=== PATIENT | female | born 1940 | race Caucasian/White ===

== ENCOUNTER → 2017-12-18 | Outpatient (CLI) | payer MEDICARE, OTHER ==
[~2017-12-18] MED LIST: A RED; ACET325 PO; ASCO500 PO; Align4 MG PO; Biotin 800 Mcg1 EACH PO; CENTRUM SILVER1 EACH PO; CLOB.05TC; CLOB.05TO TOP; ELIQUIS5 MG PO; FERR325 PO; GAVILAX17 GM PO; LEVSOD100 PO; LEVSOD88 PO; METO25ER PO; METO50 PO; OMEP40CA12 PO; ONDA4 PO; OXECTA5 MG PO; PIRO20 PO; POLY500 PO; PROBIOTIC1 EAC1 PO; Prilosec Otc20 MG PO; Super B Comple150 MG PO; TOCO400 PO; Toprol Xl25 MG PO; VALA500 PO; VANCOMYCIN HCL PO; Valtrex500 MG PO; Voltaren100 GM TOP
== END | disposition home or self-care (01) ==
LOC: LAB 15:56 → LAB SHORT 15:56
PROVIDERS: Obstetrics & Gynecology
DX: R87.622 Low grade squamous intraepithelial lesion on cytologic smear of vagina (LGSIL) (principal); R87.811 Vaginal high risk human papillomavirus (HPV) DNA test positive
CPT/HCPCS: 87624; 88142

== ENCOUNTER 2019-06-12 18:45 | Inpatient (IN) | payer MEDICARE, OTHER ==
[~2019-06-12] VITALS: Ht 157.5 cm; Wt 48.6 kg
[~2019-06-12 18:45] MED LIST changes: +LEVSOD75 PO; -METO50 PO
[2019-06-12 19:13] LABS: BASOPHILS ABSOLUTE AUTO 0.03 K/mm3 (0.00-0.23); BASOPHILS PERCENT AUTO 0 % (0-2); EOSINOPHILS ABSOLUTE AUTO 0.07 K/mm3 (0.00-0.68); EOSINOPHILS PERCENT AUTO 1 % (0-6); Hematocrit 42.1 % (33.0-51.0); IMMATURE GRAN ABSOLUTE AUTO 0.04 K/mm3 (0.00-0.10); IMMATURE GRAN PERCENT AUTO 0 % (0-1); LYMPHOCYTES ABSOLUTE AUTO 2.01 K/mm3 (0.84-5.20); LYMPHOCYTES PERCENT AUTO 18 % (21-46); MONOCYTES ABSOLUTE AUTO 0.73 K/mm3 (0.16-1.47); MONOCYTES PERCENT AUTO 6 % (4-13); Mean Corpuscular HGB 32.9 pg (26.0-34.0); Mean Corpuscular HGB Conc 33.3 g/dL (31.5-36.5); Mean Corpuscular Volume 99 fL (80-100); Mean Platelet Volume 9.4 fL (9.1-12.4); NEUTROPHILS ABSOLUTE AUTO 8.62 K/mm3 (1.96-9.15); NEUTROPHILS PERCENT AUTO 75 % (41-73); Platelet Count 285 K/mm3 (150-400); RDW Coefficient Variation 13.5 % (11.7-14.2); RDW Standard Deviation 49.8 fL (35.1-46.3); Red Blood Cell Count 4.25 M/mm3 (3.80-5.20)
[2019-06-12 19:38] LABS: Alanine Aminotransfer (ALT/SGP 29 U/L (12-78); Albumin, Blood 4.3 g/dL (3.4-5.0); Albumin/Globulin Ratio 1.2 (0.8-1.8); Alk Phos 88 U/L (50-136); Anion Gap 11 mmol/L (6-16); Aspartate Aminotrans (AST/SGOT 34 U/L (12-37); Bilirubin, Total 0.8 mg/dL (0.1-1.0); Blood Urea Nitrogen 15 mg/dL (8-24); Bun/Creatinine Ratio 19.9 (12.0-20.0); CO2, Blood 21 mmol/L (21-32); Calcium, Blood 10.3 mg/dL (8.5-10.1); Chloride, Blood 102 mmol/L (98-108); Creatinine, Blood 0.75 mg/dL (0.40-1.00); Globulin, Blood 3.7 g/dL (2.2-4.0); Glomerular Filtration Rate >60 (60-); Glucose, Blood 116 mg/dL (70-99); Sodium, Blood 134 mmol/L (136-145)
[2019-06-12] MEDS ORDERED: ATORVASTATIN CA20 MG PO (19:58)
[2019-06-12] MEDS ORDERED: DICLOFENAC SOD100 G1 TOP (19:59)
[2019-06-12] MEDS ORDERED: Clobetasol Emol15 GM TOP (19:59)
[2019-06-12 20:17] LABS: Source, Urine Clean Catch
[2019-06-12 20:20] LABS: Bilirubin, Urine Neg (Neg); Blood, Urine 1+ (Neg); Glucose Qualitative, Urine Neg (Neg); Ketones, Urine 3+ (Neg); Leukocyte Esterase, Urine 3+ (Neg); Nitrite, Urine Neg (Neg); Protein, Urine 1+ (Neg); Specific Gravity, Urine 1.025 (1.003-1.022); Urobilinogen, Urine NORM (Normal)
[2019-06-12 20:34] LABS: Appearance, Urine Clear (Clear); Color, Urine Yellow (P-Yellow)
[2019-06-12 20:35] LABS: Bacteria Many /hpf; Mucus Light (0-Heavy); Red Blood Cells, Urine 0-2 /hpf (0-2); Squamous Epithelial Cells Few /hpf (Few)
[2019-06-12] MEDS ORDERED: ALBU90OI INH (22:17)
[2019-06-12 23:26] LABS: International Normalized Ratio 1.08; Prothrombin Time Results 11.4 Sec (9.7-11.5)
[2019-06-13 03:38] LABS: Hemoglobin 13.8 g/dL (11.5-16.0); Mean Corpuscular HGB 32.8 pg (26.0-34.0); Mean Corpuscular HGB Conc 32.9 g/dL (31.5-36.5); Mean Corpuscular Volume 100 fL (80-100); Mean Platelet Volume 9.4 fL (9.1-12.4); Platelet Count 253 K/mm3 (150-400); RDW Coefficient Variation 13.7 % (11.7-14.2); RDW Standard Deviation 49.9 fL (35.1-46.3); Red Blood Cell Count 4.21 M/mm3 (3.80-5.20); White Blood Cell Count 11.41 K/mm3 (4.00-11.30)
[2019-06-13 03:58] LABS: Alanine Aminotransfer (ALT/SGP 25 U/L (12-78); Albumin, Blood 3.6 g/dL (3.4-5.0); Alk Phos 82 U/L (50-136); Anion Gap 9 mmol/L (6-16); Aspartate Aminotrans (AST/SGOT 28 U/L (12-37); Bilirubin, Total 0.9 mg/dL (0.1-1.0); Blood Urea Nitrogen 12 mg/dL (8-24); Bun/Creatinine Ratio 19.4 (12.0-20.0); CO2, Blood 24 mmol/L (21-32); Calcium, Blood 9.5 mg/dL (8.5-10.1); Chloride, Blood 104 mmol/L (98-108); Creatinine, Blood 0.62 mg/dL (0.40-1.00); Globulin, Blood 3.6 g/dL (2.2-4.0); Glomerular Filtration Rate >60 (60-); Glucose, Blood 123 mg/dL (70-99); Potassium, Blood 3.8 mmol/L (3.5-5.5); Sodium, Blood 137 mmol/L (136-145); Total Protein, Blood 7.2 g/dL (6.4-8.2)
--- NOTE | 2019-06-13 06:24 | NUR ---
SHIFT SUMMARY PT SLEEPING IN ROOM COMFORTABLY AT THIS TIME. PT HAD INTRACTABLE N/V SINCE ARRIVAL TO UNIT. MEDICATED PER EMAR, STILL UNABLE TO CONTROL VOMITTING. NG TUBE ORDER WAS OBTAINED AND NG TUBE PLACED TO INTERMITTEN SUCTION, >400ML OF DARK GREEN, COFFEE GROUND EMESIS OUT IMMEDICATELY. ABD DISTENTION IMPROVED, PT REPORTS STILL SLIGHTLY NAUSEOUS IMMEDIATELY AFTER INSERTION BUT FEELING BETTER. DENIED CP OR SOB. RESP EVEN UNLABORED ON RA W/ SATS >92%. PT HAS PROTONIX GTT INFUING IN PIV, AND LR INFUSING IN PIV. PT NOW SLEEPING COMFORTABLY, REPORTS FEELING MUCH BETTER. DENIES OTHER NEEDS. CALL LIGHT IN REACH.
--- NOTE | 2019-06-13 11:50 | NUR ---
PT TRANSFERRED TO ROOM 224 VIA BED. REPORT WAS GIVEN TO SVETLANA MONTEMAYOR. BELONGINGS GATHERED AND TRANSPORTED WITH PT.
--- NOTE | 2019-06-13 12:12 | NUR ---
PT ARRIVED TO UNIT FROM PCU A&OX3. AMBULATED TO RESTROOM AND VOIDED 400 ML URINE. SHAKY ON FEET. HOOKED PT UP TO LIS, GREENISH COFFEE GROUND DRAINAGE NOTED IN TUBING. PT REPORTS PAIN AND NAUSEA TOLERABLE AT THIS TIME. NO RESTING IN BED, CALL LIGHT IN REACH.
--- NOTE | 2019-06-13 17:19 | NUR ---
SUMMARY NO ACUTE CHANGES SINCE ARRIVING TO UNIT FROM PCU. PT HAS REPORTED PAIN AND NAUSEA TOLERABLE. NG TO LIS, DRAINING DARK GREENISH BROWN FLUID. CALL LIGHT IN REACH.
--- NOTE | 2019-06-13 17:44 | NUR ---
DR REED IN TO SEE PT.
[2019-06-14 03:48] LABS: Hematocrit 36.9 % (33.0-51.0); Hemoglobin 12.1 g/dL (11.5-16.0); Mean Corpuscular HGB 33.1 pg (26.0-34.0); Mean Corpuscular HGB Conc 32.8 g/dL (31.5-36.5); Mean Corpuscular Volume 101 fL (80-100); Mean Platelet Volume 9.2 fL (9.1-12.4); Platelet Count 212 K/mm3 (150-400); RDW Coefficient Variation 13.9 % (11.7-14.2); RDW Standard Deviation 51.4 fL (35.1-46.3); Red Blood Cell Count 3.66 M/mm3 (3.80-5.20); White Blood Cell Count 6.28 K/mm3 (4.00-11.30)
[2019-06-14 04:07] LABS: Anion Gap 8 mmol/L (6-16); Blood Urea Nitrogen 10 mg/dL (8-24); Bun/Creatinine Ratio 14.2 (12.0-20.0); CO2, Blood 23 mmol/L (21-32); Calcium, Blood 8.6 mg/dL (8.5-10.1); Chloride, Blood 111 mmol/L (98-108); Glomerular Filtration Rate >60 (60-); Glucose, Blood 83 mg/dL (70-99); Potassium, Blood 3.4 mmol/L (3.5-5.5); Sodium, Blood 142 mmol/L (136-145)
--- NOTE | 2019-06-14 04:58 | NUR ---
SHIFT SUMMARY: SHARIFA IS A&O X 4. SHE HAS RESTED COMFORTABLY FOR MOST OF THE SHIFT, DENIES PAIN. DR. OLGUIN CONSULTED WITH HER THIS SHIFT. SHE DENIES ANY N/V. NG TUBE TO INTERMITTENT LOW SUCTION. PAS IN PLACE. IV PATENT, LR INFUSING PER ORDERS. SHE IS A 1 PERSON ASSIST. SHE IS ABLE TO MAKE HER NEEDS KNOWN. SHE IS LYING IN BED WITH HER CALL LIGHT IN REACH.
--- NOTE | 2019-06-14 19:28 | NUR ---
NG TUBE DC'D AT 1900
--- NOTE | 2019-06-14 19:28 | NUR ---
SHIFT SUMMARY PT A&OX4, VSS, REP PASSING SMALL AMT FLATUS, NO BMS, VOIDING WELL. AMBULATING HALLWAYS W/SBA X3, UP TO CHAIR. RANDY CL DIET, DENIES N&V; NG TUBE REMOVED AT 1900. REPORT GIVEN TO TIFFANI MOTA.
[2019-06-15 04:01] LABS: Hematocrit 34.4 % (33.0-51.0); Hemoglobin 10.9 g/dL (11.5-16.0); Mean Corpuscular HGB 31.9 pg (26.0-34.0); Mean Corpuscular HGB Conc 31.7 g/dL (31.5-36.5); Mean Corpuscular Volume 101 fL (80-100); Mean Platelet Volume 9.2 fL (9.1-12.4); Platelet Count 198 K/mm3 (150-400); RDW Coefficient Variation 13.8 % (11.7-14.2); RDW Standard Deviation 51.7 fL (35.1-46.3); Red Blood Cell Count 3.42 M/mm3 (3.80-5.20); White Blood Cell Count 6.71 K/mm3 (4.00-11.30)
[2019-06-15 04:17] LABS: Anion Gap 7 mmol/L (6-16); Blood Urea Nitrogen 6 mg/dL (8-24); CO2, Blood 24 mmol/L (21-32); Chloride, Blood 109 mmol/L (98-108); Creatinine, Blood 0.46 mg/dL (0.40-1.00); Glomerular Filtration Rate >60 (60-); Glucose, Blood 80 mg/dL (70-99); Potassium, Blood 3.6 mmol/L (3.5-5.5); Sodium, Blood 140 mmol/L (136-145)
--- NOTE | 2019-06-15 04:50 | NUR ---
SHIFT SUMMARY PATIENT HAS SLEPT THROUGHOUT THE NIGHT. NO NAUSEA, VOMITING, OR PAIN. SHE DOES COMPLAIN OF A MILD SORE THROAT FROM THE NG TUBE PLACEMENT AND SUBSEQUENT REMOVAL. UP TO THE BR WITH MINIMAL ASSIST. SHE HAS BEEN HAVING LARGE AMOUNT OF FLATUS. NO OTHER ACUTE CHANGES.
[2019-06-15] MEDS ORDERED: CEFU500T30 PO (13:56)
--- NOTE | 2019-06-15 15:07 | NUR ---
DISCHARGE SUMMARY PT A&OX4, VSS, LEFT FLOOR VIA WC WITH RN, TO GO HOME WITH FAMILY, WITH ALL PERSONAL POSSESSIONS INCLUDING DC PACKET, CEFTIN SCRIPT CALLED IN TO [facility] AT [facility]/FAMILY WAS INSTRUCTED TO HAVE PHARMACY CALL THE FLOOR IF THERE IS A PROBLEM WITH THE SCRIPT. DC INSTRUCTIONS PROVIDED. PT REP UNDERSTANDING THOSE INSTRUCTIONS INCLUDING STOP ELIQUIS, FU WITH DR OLGUIN THIS WEEK FOR EGD, FU WITH PCP THIS WEEK, GO TO ER W/WORSENING SYMPTOMS, DIET AND EXERCISE PREVENTING CONSTIPATION. IV DC'D X2.
== END 2019-06-15 14:22 | disposition home or self-care (01) | DRG 389 ==
LOC: ER 18:45 → PCU 22:59 → SURS 06-13 12:10
PROVIDERS: Internal Medicine; Nurse Practitioner Acute Care; Physician Assistant; ADMIT Internal Medicine
PROC: 0D9670Z Drainage of Stomach with Drainage Device, Via Natural or Artificial Opening (ICD-10-PCS; principal; 2019-06-13)
DX: K56.609 Unspecified intestinal obstruction, unspecified as to partial versus complete obstruction (principal); N39.0 Urinary tract infection, site not specified; I10 Essential (primary) hypertension; I48.0 Paroxysmal atrial fibrillation; E78.5 Hyperlipidemia, unspecified; E89.0 Postprocedural hypothyroidism; B96.20 Unspecified Escherichia coli [E. coli] as the cause of diseases classified elsewhere; Z88.2 Allergy status to sulfonamides; Z88.8 Allergy status to other drugs, medicaments and biological substances
CPT/HCPCS: 36415; 74176; 80048; 80053; 81001; 82271; 82272; 83605; 83690; 85025; 85027; 85610; 85730; 86850; 86900; 86901; 87077; 87086; 87186; 93005; 93010; 94760; 94762; 96365; 96366; 96367; 96375; 99285-25; C9113; J0696; J1956; J2405; J3010; J3480; J7050; J7120

== ENCOUNTER 2019-06-17 12:27 | Day surgery (SDC) | payer MEDICARE, OTHER ==
[~2019-06-17] VITALS: Ht 157.5 cm; Wt 47.9 kg
[~2019-06-17 12:27] MED LIST changes: +ALBU90OI INH; +ATORVASTATIN CA20 MG PO; +CEFU500T30 PO; +Clobetasol Emol15 GM TOP; +DICLOFENAC SOD100 G1 TOP
[2019-06-17] MEDS ORDERED: ELIQUIS2.5 MG (13:08)
== END 2019-06-17 14:40 | disposition home or self-care (01) ==
LOC: ORSCSDS 12:27
PROVIDERS: Internal Medicine Gastroenterology
PROC: 0DJ08ZZ Inspection of Upper Intestinal Tract, Via Natural or Artificial Opening Endoscopic (ICD-10-PCS; principal; 2019-06-17 14:00)
DX: K92.1 Melena (principal); D64.9 Anemia, unspecified; R11.10 Vomiting, unspecified; Z87.11 Personal history of peptic ulcer disease; Z79.899 Other long term (current) drug therapy
CPT/HCPCS: J2704; J7120

== ENCOUNTER 2020-05-25 00:06 | Day surgery (SDC) | payer MEDICARE, OTHER ==
[~2020-05-25 00:06] MED LIST changes: +ELIQUIS2.5 MG
== END 2020-05-25 09:50 | disposition home or self-care (01) ==
LOC: ATC 00:06
DX: R55 Syncope and collapse (principal); E03.9 Hypothyroidism, unspecified; Z79.899 Other long term (current) drug therapy; Z88.1 Allergy status to other antibiotic agents; Z88.2 Allergy status to sulfonamides; Z88.5 Allergy status to narcotic agent; Z88.8 Allergy status to other drugs, medicaments and biological substances; I25.10 Atherosclerotic heart disease of native coronary artery without angina pectoris; Z98.890 Other specified postprocedural states; I51.9 Heart disease, unspecified
CPT/HCPCS: 36415; 80400; 82533; 96372; J0834

== ENCOUNTER 2021-03-04 14:23 | Day surgery (SDC) | payer MEDICARE, OTHER ==
[~2021-03-04 14:23] MED LIST changes: -ELIQUIS2.5 MG; +ELIQUIS2.5 MG PO
[2021-03-04] MEDS ORDERED: ATOR20 PO (15:41)
[2021-03-04] MEDS ORDERED: TRAM50 PO (15:41)
--- NOTE | 2021-03-04 16:25 | NUR ---
PT MONITORED Q 15 MINUTES DURING AND FOR ONE HOUR AFTER INFUSION. NO S/S OF RXN. VSS. PT DISCHARGED, AMB WITH STEADY GAIT.
== END 2021-03-04 23:14 | disposition home or self-care (01) ==
LOC: ATC 14:23
DX: U07.1 COVID-19 (principal); E03.9 Hypothyroidism, unspecified; I25.10 Atherosclerotic heart disease of native coronary artery without angina pectoris; E78.5 Hyperlipidemia, unspecified; I48.0 Paroxysmal atrial fibrillation; Z88.2 Allergy status to sulfonamides; Z88.1 Allergy status to other antibiotic agents; Z88.5 Allergy status to narcotic agent; Z88.8 Allergy status to other drugs, medicaments and biological substances
CPT/HCPCS: 96365; Q0243

== ENCOUNTER 2021-09-12 11:57 | Emergency (ER) | payer MEDICARE, OTHER ==
[~2021-09-12] VITALS: Ht 157.5 cm; Wt 46.3 kg
[~2021-09-12 11:57] MED LIST changes: +ATOR20 PO; +TRAM50 PO
[2021-09-12] MEDS ORDERED: Ventolin/Prove6.7 GM INH (14:39)
[2021-09-12] MEDS ORDERED: TRAM50 PO (15:25)
== END 2021-09-12 15:53 | disposition home or self-care (01) ==
LOC: ER 11:57
DX: S00.83XA Contusion of other part of head, initial encounter (principal); S60.222A Contusion of left hand, initial encounter; S70.02XA Contusion of left hip, initial encounter; I48.91 Unspecified atrial fibrillation; E03.9 Hypothyroidism, unspecified; Z88.2 Allergy status to sulfonamides; Z88.1 Allergy status to other antibiotic agents; Z88.8 Allergy status to other drugs, medicaments and biological substances; Z79.899 Other long term (current) drug therapy; Z79.01 Long term (current) use of anticoagulants; W10.9XXA Fall (on) (from) unspecified stairs and steps, initial encounter
CPT/HCPCS: 70450; 71111; 72125; 73110; 73502; A9270

== ENCOUNTER → 2021-12-06 | Outpatient (CLI) | payer MEDICARE, OTHER ==
[~2021-12-06] MED LIST changes: +Ventolin/Prove6.7 GM INH
[2021-12-06 17:19] LABS: BASOPHILS ABSOLUTE AUTO 0.02 K/mm3 (0.00-0.23); BASOPHILS PERCENT AUTO 0 % (0-2); EOSINOPHILS PERCENT AUTO 3 % (0-6); Hematocrit 41.1 % (33.0-51.0); Hemoglobin 13.5 g/dL (11.5-16.0); IMMATURE GRAN ABSOLUTE AUTO 0.02 K/mm3 (0.00-0.10); IMMATURE GRAN PERCENT AUTO 0 % (0-1); LYMPHOCYTES ABSOLUTE AUTO 1.58 K/mm3 (0.84-5.20); LYMPHOCYTES PERCENT AUTO 26 % (21-46); MONOCYTES ABSOLUTE AUTO 0.49 K/mm3 (0.16-1.47); MONOCYTES PERCENT AUTO 8 % (4-13); Mean Corpuscular HGB 32.1 pg (26.0-34.0); Mean Corpuscular HGB Conc 32.8 g/dL (31.5-36.5); Mean Corpuscular Volume 98 fL (80-100); Mean Platelet Volume 9.8 fL (9.1-12.4); NEUTROPHILS ABSOLUTE AUTO 3.67 K/mm3 (1.96-9.15); NEUTROPHILS PERCENT AUTO 62 % (41-73); Platelet Count 250 K/mm3 (150-400); RDW Coefficient Variation 13.6 % (11.7-14.2); RDW Standard Deviation 48.7 fL (35.1-46.3); White Blood Cell Count 5.98 K/mm3 (4.00-11.30)
[2021-12-06 17:28] LABS: Albumin, Blood 3.8 g/dL (3.4-5.0); Bilirubin, Total 0.4 mg/dL (0.1-1.0); Bun/Creatinine Ratio 21.3 (12.0-20.0); Calcium, Blood 10.2 mg/dL (8.5-10.1); Creatinine, Blood 0.8 mg/dL (0.40-1.00); Globulin, Blood 3.7 g/dL (2.2-4.0); Potassium, Blood 4.1 mmol/L (3.5-5.5); Total Protein, Blood 7.5 g/dL (6.4-8.2)
== END ==
LOC: LAB SHORT 17:14
PROVIDERS: Family Medicine
DX: R42 Dizziness and giddiness (principal)
CPT/HCPCS: 80053; 85025

== ENCOUNTER 2023-08-21 11:14 | Emergency (ER) | payer OTHER, MEDICARE ==
[~2023-08-21] VITALS: Ht 157.5 cm; Wt 43.1 kg
[2023-08-21] MEDS ORDERED: Tetanus and Diphtheria Toxoid 0.5 ML INJ IM ONE (14:35)
[2023-08-21 15:42] VITALS: BP 131/66
== END 2023-08-21 16:03 | disposition home or self-care (01) ==
LOC: ER 11:14
DX: S01.511A Laceration without foreign body of lip, initial encounter (principal); K08.89 Other specified disorders of teeth and supporting structures; I48.91 Unspecified atrial fibrillation; E03.9 Hypothyroidism, unspecified; M19.90 Unspecified osteoarthritis, unspecified site; K27.9 Peptic ulcer, site unspecified, unspecified as acute or chronic, without hemorrhage or perforation; W01.0XXA Fall on same level from slipping, tripping and stumbling without subsequent striking against object, initial encounter; Z88.1 Allergy status to other antibiotic agents; Z88.2 Allergy status to sulfonamides; Z88.8 Allergy status to other drugs, medicaments and biological substances; Z79.51 Long term (current) use of inhaled steroids; Z79.890 Hormone replacement therapy; Z79.01 Long term (current) use of anticoagulants; E55.9 Vitamin D deficiency, unspecified; M81.0 Age-related osteoporosis without current pathological fracture
CPT/HCPCS: 12011; 36415; 64400; 70450; 70486; 72125; 80048; 90471; 90714; 99283-25

== ENCOUNTER 2024-04-24 09:31 | Emergency (ER) | payer MEDICARE, OTHER ==
[~2024-04-24] VITALS: Ht 157.5 cm; Wt 44.5 kg
[2024-04-24] MEDS ORDERED: Gabapentin 300 MG Cap PO ONE (10:55)
[2024-04-24] MEDS ORDERED: Dexamethasone Sod Phos 10 MG/ML 1ML VIAL PO ONE (10:55)
[2024-04-24] MEDS ORDERED: Ketorolac Tromethamine 15mg Vial IV ONE (10:55)
[2024-04-24] MEDS ORDERED: Acetaminophen 500 MG Tab PO ONE (10:55)
[2024-04-24] MEDS ORDERED: GABA100 PO (11:18)
[2024-04-24] MEDS ORDERED: EUTHYROX50 MC1 PO (11:18)
[2024-04-24] MEDS ORDERED: FLUTICASONE PRO16 GM (11:19)
[2024-04-24] MEDS ORDERED: ATORVASTATIN CA20 MG PO (11:19)
[2024-04-24] MEDS ORDERED: GABA300 PO (12:41)
[2024-04-24 12:57] VITALS: BP 128/74
== END 2024-04-24 12:58 | disposition home or self-care (01) ==
LOC: ER 09:31
DX: M54.50 Low back pain, unspecified (principal); G89.29 Other chronic pain; I48.91 Unspecified atrial fibrillation; M19.90 Unspecified osteoarthritis, unspecified site; E03.9 Hypothyroidism, unspecified; Z87.11 Personal history of peptic ulcer disease; Z88.2 Allergy status to sulfonamides; Z88.1 Allergy status to other antibiotic agents; Z88.8 Allergy status to other drugs, medicaments and biological substances; Z79.01 Long term (current) use of anticoagulants; Z79.890 Hormone replacement therapy; Z79.899 Other long term (current) drug therapy
CPT/HCPCS: 51798; 96374; 99282-25; A9270; J1100; J1885

== ENCOUNTER 2024-09-23 15:56 | Emergency (ER) | payer OTHER, MEDICARE ==
[~2024-09-23] VITALS: Ht 157.5 cm; Wt 46.7 kg
[~2024-09-23 15:56] MED LIST changes: +EUTHYROX50 MC1 PO; +FLUTICASONE PRO16 GM; +GABA100 PO; +GABA300 PO
[2024-09-23 16:10] VITALS: BP 123/62
[2024-09-27] MEDS ORDERED: PRED20 PO (13:51)
[2024-09-27] MEDS ORDERED: ZYRTEC10 M2 PO (13:51)
== END 2024-09-23 17:54 | disposition home or self-care (01) ==
LOC: ER 15:56
DX: S00.03XA Contusion of scalp, initial encounter (principal); Z88.2 Allergy status to sulfonamides; Z88.8 Allergy status to other drugs, medicaments and biological substances; Z88.1 Allergy status to other antibiotic agents; Z79.01 Long term (current) use of anticoagulants; Z79.899 Other long term (current) drug therapy; Z79.83 Long term (current) use of bisphosphonates; I48.91 Unspecified atrial fibrillation; M19.90 Unspecified osteoarthritis, unspecified site; W01.0XXA Fall on same level from slipping, tripping and stumbling without subsequent striking against object, initial encounter; Y92.000 Kitchen of unspecified non-institutional (private) residence as the place of occurrence of the external cause
CPT/HCPCS: 70450; 72070; 99284-25

== ENCOUNTER 2024-09-27 11:04 | Emergency (ER) | payer MEDICARE, OTHER ==
[~2024-09-27] VITALS: Ht 157.5 cm; Wt 47.2 kg
[2024-09-27 11:52] LABS: BASOPHILS ABSOLUTE AUTO 0.01 K/mm3 (0.00-0.23); BASOPHILS PERCENT AUTO 0 % (0-2); EOSINOPHILS ABSOLUTE AUTO 0.19 K/mm3 (0.00-0.68); EOSINOPHILS PERCENT AUTO 3 % (0-6); Hematocrit 38.8 % (33.0-51.0); Hemoglobin 13.1 g/dL (11.5-16.0); IMMATURE GRAN ABSOLUTE AUTO 0.02 K/mm3 (0.00-0.10); IMMATURE GRAN PERCENT AUTO 0 % (0-1); LYMPHOCYTES ABSOLUTE AUTO 1.27 K/mm3 (0.84-5.20); LYMPHOCYTES PERCENT AUTO 21 % (21-46); MONOCYTES ABSOLUTE AUTO 0.29 K/mm3 (0.16-1.47); MONOCYTES PERCENT AUTO 5 % (4-13); Mean Corpuscular HGB 32.9 pg (26.0-34.0); Mean Corpuscular HGB Conc 33.8 g/dL (31.5-36.5); Mean Corpuscular Volume 98 fL (80-100); Mean Platelet Volume 10.3 fL (9.1-12.4); NEUTROPHILS ABSOLUTE AUTO 4.33 K/mm3 (1.96-9.15); NEUTROPHILS PERCENT AUTO 71 % (41-73); Platelet Count 184 K/mm3 (150-400); RDW Coefficient Variation 14.3 % (11.7-14.2); RDW Standard Deviation 51.4 fL (35.1-46.3); Red Blood Cell Count 3.98 M/mm3 (3.80-5.20); White Blood Cell Count 6.11 K/mm3 (4.00-11.30)
[2024-09-27] MEDS ORDERED: Lactated Ringer's 1,000 ML IV ONE (12:00)
[2024-09-27] MEDS ORDERED: Metoclopramide HCl 5MG / ML 2ML Vial IV ONE (12:00)
[2024-09-27] MEDS ORDERED: Acetaminophen 500 MG Tab PO ONE (12:00)
[2024-09-27 12:09] LABS: Albumin, Blood 3.7 g/dL (3.4-5.0); Bilirubin, Total 0.7 mg/dL (0.1-1.0); Bun/Creatinine Ratio 26.5 (12.0-20.0); Calcium, Blood 9.6 mg/dL (8.5-10.1); Creatinine, Blood 0.87 mg/dL (0.40-1.00); Globulin, Blood 3.7 g/dL (2.2-4.0); Potassium, Blood 3.4 mmol/L (3.5-5.5); Total Protein, Blood 7.4 g/dL (6.4-8.2)
[2024-09-27] MEDS ORDERED: MethylPREDNISolone Sod Succ 125 MG Vial IV ONE (12:15)
[2024-09-27] MEDS ORDERED: Loratadine 10 MG Tab PO ONE (12:15)
[2024-09-27] MEDS ORDERED: Potassium Chloride 20 MEQ/15 ML UDC PO ONE (12:35)
[2024-09-27] MEDS ORDERED: PRED20 PO ×2 (13:51→13:57)
[2024-09-27] MEDS ORDERED: ZYRTEC10 M2 PO ×2 (13:51→13:57)
[2024-09-27 14:07] VITALS: BP 132/84
== END 2024-09-27 14:06 | disposition home or self-care (01) ==
LOC: ER 11:04
PROVIDERS: Student in an Organized Health Care Education/Training Program
DX: T78.3XXA Angioneurotic edema, initial encounter (principal); R42 Dizziness and giddiness; I48.91 Unspecified atrial fibrillation; E89.0 Postprocedural hypothyroidism; Z87.11 Personal history of peptic ulcer disease; Z87.820 Personal history of traumatic brain injury; Z88.2 Allergy status to sulfonamides; Z88.1 Allergy status to other antibiotic agents; Z88.8 Allergy status to other drugs, medicaments and biological substances; Z79.899 Other long term (current) drug therapy; Z79.01 Long term (current) use of anticoagulants
CPT/HCPCS: 70450; 80053; 83735; 85025; 93005; 93010; 96361; 96374; 96375; 99285-25; A9270; J2765; J2919; J7120

== ENCOUNTER 2025-03-03 16:40 | Emergency (ER) | payer OTHER, MEDICARE ==
[~2025-03-03] VITALS: Ht 157.5 cm; Wt 47.2 kg
[~2025-03-03 16:40] MED LIST changes: +PRED20 PO; +ZYRTEC10 M2 PO
[2025-03-03 16:46] VITALS: BP 142/55
== END 2025-03-03 19:04 | disposition home or self-care (01) ==
LOC: ER 16:40
DX: S00.03XA Contusion of scalp, initial encounter (principal); S50.01XA Contusion of right elbow, initial encounter; I48.91 Unspecified atrial fibrillation; E03.9 Hypothyroidism, unspecified; Z88.2 Allergy status to sulfonamides; Z88.1 Allergy status to other antibiotic agents; Z88.8 Allergy status to other drugs, medicaments and biological substances; Z79.01 Long term (current) use of anticoagulants; Z79.890 Hormone replacement therapy; Z79.52 Long term (current) use of systemic steroids; Z79.899 Other long term (current) drug therapy; Z59.89 Other problems related to housing and economic circumstances; W01.198A Fall on same level from slipping, tripping and stumbling with subsequent striking against other object, initial encounter
CPT/HCPCS: 70450; 99284-25